=== PATIENT | female | born 1980 | race Two or more races ===

== ENCOUNTER 2020-10-27 15:32 | Observation (INO) | payer SELFPAY ==
[2015-07-08 14:20] VITALS: BP 125/79
[~2020-10-27 15:32] MED LIST: NAPR-683 PO; PNV1TABL25 PO; SULF1TAB24 PO
[2020-10-27 17:26] LABS: BILIRUBIN,URINE NEGATIVE (NEG); CLARITY,URINE CLEAR; COLOR,URINE YELLOW; NITRITE,URINE POSITIVE (NEG); PROTEIN,URINE NEGATIVE (NEG-TRACE)
[2020-10-27 17:34] LABS: AMORPHOUS SEDIMENT,UR PRESENT /HPF; BACTERIA,URINE MANY /HPF (0-FEW)
[2020-10-27 17:35] LABS: RBC,URINE 20-40 /HPF (0-2)
== END 2020-10-27 19:44 | disposition home or self-care (01) ==
LOC: 3 SO LND 15:32
PROVIDERS: ADMIT Obstetrics & Gynecology; ATTEND Obstetrics & Gynecology
DX: O26.893 Other specified pregnancy related conditions, third trimester (principal); R10.9 Unspecified abdominal pain; R05 Cough; Z3A.30 30 weeks gestation of pregnancy; Y04.0XXA Assault by unarmed brawl or fight, initial encounter; Y93.89 Activity, other specified; Y92.59 Other trade areas as the place of occurrence of the external cause; Y99.0 Civilian activity done for income or pay
CPT/HCPCS: 59025; 81001; 87086; G0378; G0379; 87077; 87186

== ENCOUNTER 2020-12-30 06:07 | Inpatient (IN) | payer SELFPAY ==
[~2020-12-30] VITALS: Ht 162.6 cm; Wt 91.7 kg
[2020-12-30] MEDS ORDERED: LIDOCAINE 1% PF 30 ML VIAL. INJ PRN (06:45)
[2020-12-30] MEDS ORDERED: TERBUTALINE 1 MG/ML VIAL. SQ PRN (06:45)
[2020-12-30] MEDS ORDERED: OXYTOCIN 30 UNIT/500 ML PREMIX 500 ML IV PRN ×3 (06:45→16:30)
[2020-12-30] MEDS ORDERED: IBUPROFEN 400 MG TABLET. PO PRN (06:45)
[2020-12-30] MEDS ORDERED: 0.9 % SODIUM CHLORIDE 10 ML DISP.SYRIN. IV PRN ×2 (06:45→16:30)
[2020-12-30 07:25] VITALS: BP 142/84
[2020-12-30] MEDS: IV RINGERS,LACTATED 1000ML 1,000 ML IV SCH ×2 (07:48→13:58)
[2020-12-30 08:12] LABS: BILIRUBIN,URINE NEGATIVE (NEG); CLARITY,URINE CLEAR; COLOR,URINE YELLOW; NITRITE,URINE NEGATIVE (NEG); PH,URINE 7.5 (<5.0-8.0); PROTEIN,URINE NEGATIVE (NEG-TRACE); UROBILINOGEN,URINE 0.2 mg/dL (0.2 mg/dL)
[2020-12-30 08:27] LABS: BACTERIA,URINE 0 /HPF (0-FEW); RBC,URINE 0 /HPF (0-2); WBC,URINE OCC /HPF (0-4)
[2020-12-30] MEDS ORDERED: BUTORPHANOL 2 MG/ML VIAL. IV PRN (08:30)
[2020-12-30 09:23] LABS: BASO % 0 % (0-3); EOS # 0.1 x10^3/uL (0.0-0.7); EOS % 1 % (0-3); HEMATOCRIT 31.6 % (36.0-47.0); LYMPH # 1.5 x10^3/uL (1.0-4.8); LYMPH % 17 % (24-48); MEAN CORPUSCULAR HEMOGLOBIN 30 pg (25-35); MEAN CORPUSCULAR HGB CONC 35 g/dL (31-37); MEAN CORPUSCULAR VOLUME 85 fL (79-100); MONO # 0.6 x10^3/uL (0.0-1.1); MONO % 7 % (0-9); NEUT # 6.5 x10^3/uL (1.8-7.7); NEUT % 75 % (31-73); PLATELET COUNT 268 x10^3/uL (140-400); RED BLOOD COUNT 3.72 x10^6/uL (3.50-5.40); RED CELL DISTRIBUTION WIDTH 14.4 % (11.5-14.5); WHITE BLOOD COUNT 8.7 x10^3/uL (4.0-11.0)
--- NOTE | 2020-12-30 09:34 | PDOC1 ---
ELEVATOR TECHNICIAN H&P Date of Admission: Date of Admission: Dec 30, 2020 at 06:07 History of Present Illness: EDC: 01/05/21 LMP: 03/31/20 40y @ 39.1 by L=10 presents for indxn of labor. The pt was originally on the schedule for 01/02/21 but was found elevated BPs in the office yesterday. She denied RAIN, changes in vision, or abd pain. On presentation to L&D she continued to have mild range BPs. PIH lbs were sent. She was found to be 2 cm on arrival. She was started on pit. PMH: tuberculosis/positive ppd, Acquired hypothyroidism, Essential hypertension, H/o preeclampsia PSH: Kidney Stones 12/2018 Meds: PNV, Synthroid All: NKDA OBHx: TSVD x 5, SAB x 2 SH: no tob, no EtOH FH: noncontributory Medications: Meds: Current Medications Medications (Trade) Dose Ordered Sig/Jaydon Route PRN Reason Start Time Stop Time Status Last Admin Dose Admin Ringer's Solution 1,000 ml @ 125 mls/hr Q8H IV 12/30/20 06:45 12/30/20 07:48 Oxytocin 500 ml @ 0 mls/hr CONT PRN IV SEE I/O RECORD 12/30/20 06:45 12/30/20 07:49 Allergies: Coded Allergies: No Known Drug Allergies (Unverified , 04/25/14) Physical Exam: Vital Signs: Vital Signs Date Time Temp Pulse Resp B/P (MAP) Pulse Ox O2 Delivery O2 Flow Rate FiO2 12/30/20 07:25 97.5 106 18 142/84 (103) 97 Room Air 97.5 PE: GENERAL: No apparent distress. Alert and oriented. HEENT: Head normocephalic, atraumatic. NECK: Supple LUNGS: Clear to auscultation. HEART: RRR, S1, S2 present, pulses intact ABDOMEN: Soft, positive bowel sounds. EXTREMITIES: No cyanosis or edema. NEUROLOGIC: Normal speech, normal tone PSYCHIATRIC: Normal affect, normal mood. SKIN: No ulceration. FHT: 140s +acels/no decels/mLTV [place]: 3 min SVE: 2/50/-2 Labs: Laboratory Tests Test 12/30/20 06:30 12/30/20 09:00 Urine Collection Type Unknown Urine Color Yellow Urine Clarity Clear Urine pH 7.5 (<5.0-8.0) Urine Specific [place] 1.010 (1.000-1.030) Urine Protein Negative mg/dL (NEG-TRACE) Urine Glucose (UA) Negative mg/dL (NEG) Urine Ketones (Stick) Negative mg/dL (NEG) Urine Blood Negative (NEG) Urine Nitrite Negative (NEG) Urine Bilirubin Negative (NEG) Urine Urobilinogen Dipstick 0.2 mg/dL (0.2 mg/dL) Urine Leukocyte Esterase Trace (NEG) Urine RBC 0 /HPF (0-2) Urine WBC Occ /HPF (0-4) Urine Squamous Epithelial Cells Few /LPF Urine Bacteria 0 /HPF (0-FEW) White Blood Count 8.7 x10^3/uL (4.0-11.0) Red Blood Count 3.72 x10^6/uL (3.50-5.40) Hemoglobin 11.0 g/dL (12.0-15.5) L Hematocrit 31.6 % (36.0-47.0) L Mean Corpuscular Volume 85 fL (79-100) Mean Corpuscular Hemoglobin 30 pg (25-35) Mean Corpuscular Hemoglobin Concent 35 g/dL (31-37) Red Cell Distribution Width 14.4 % (11.5-14.5) Platelet Count 268 x10^3/uL (140-400) Neutrophils (%) (Auto) 75 % (31-73) H Lymphocytes (%) (Auto) 17 % (24-48) L Monocytes (%) (Auto) 7 % (0-9) Eosinophils (%) (Auto) 1 % (0-3) Basophils (%) (Auto) 0 % (0-3) Neutrophils # (Auto) 6.5 x10^3/uL (1.8-7.7) Lymphocytes # (Auto) 1.5 x10^3/uL (1.0-4.8) Monocytes # (Auto) 0.6 x10^3/uL (0.0-1.1) Eosinophils # (Auto) 0.1 x10^3/uL (0.0-0.7) Basophils # (Auto) 0.0 x10^3/uL (0.0-0.2) Laboratory Tests 12/30/20 09:00 Laboratory Tests 12/30/20 09:00 Assessment & Plan: A/P 40y @ 39.1 by L=10 1.) Indxn on Pit 2.) GHTN vs preeclampsia PIH labs sent. Denies s/s of preeclampsia 3.) H/o preeclampsia 4.) AMA 5.) Hypothyroidism 6.) Flu vaccine given 06/30/20 7.) TDAP given 10/19/20 8.) Fetus cat I FHT 9.) GBS neg BARI PEREZ MD Dec 30, 2020 09:34
[2020-12-30 09:47] LABS: ALBUMIN 2.2 g/dL (3.4-5.0); ALBUMIN/GLOBULIN RATIO 0.7 (1.0-1.7); CALCIUM 7.6 mg/dL (8.5-10.1); CREATININE 0.6 mg/dL (0.6-1.0); GFR 111.9; POTASSIUM 4.3 mmol/L (3.5-5.1); TOTAL BILIRUBIN 0.1 mg/dL (0.2-1.0); TOTAL PROTEIN 5.3 g/dL (6.4-8.2); URIC ACID 2.9 mg/dL (2.6-6.0)
[2020-12-30] MEDS ORDERED: miSOPROStol 200 MCG TABLET. ONE ×2 (16:22→17:00)
[2020-12-30] MEDS ORDERED: SIMETHICONE 80 MG TAB.CHEW PO PRN (16:30)
[2020-12-30] MEDS ORDERED: HYDROCORTISONE 1% TOPICAL OINTMENT 30GM TUBE. TP PRN (16:30)
[2020-12-30] MEDS ORDERED: MMR per PROTOCOL. MC PRN (16:30)
[2020-12-30] MEDS ORDERED: diphenhydrAMINE HCL 25 MG CAPSULE PO PRN (16:30)
[2020-12-30] MEDS ORDERED: PHENYLEPH/MINERAL OIL/PETROLAT RECTAL OINTMENT TUBE. RC PRN (16:30)
[2020-12-30] MEDS ORDERED: MAG HYDROX/ALUMINUM HYD/SIMETH 30 ML ORAL.SUSP PO PRN (16:30)
[2020-12-30] MEDS ORDERED: oxyCODONE/APAP 5/325 1 TAB TABLET PO PRN (16:30)
[2020-12-30] MEDS ORDERED: BENZOCAINE 20% TOPICAL AEROSOL SPRAY 57GM CAN. TP PRN (16:30)
[2020-12-30] MEDS ORDERED: ZOLPIDEM 5 MG TABLET. PO PRN (16:30)
[2020-12-30] MEDS ORDERED: MAGNESIUM HYDROXIDE 2,400 MG/30 ML ORAL.SUSP. PO PRN (16:30)
[2020-12-30] MEDS ORDERED: TDaP (Adacel) per PROTOCOL. MC PRN (16:30)
--- NOTE | 2020-12-30 16:35 | PDOC4 ---
VAGINAL DELIVERY DATE DATE: 12/30/20 TIME: 16:35 TIME Patient delivered a viable male infant over intact perineum at 1607. Wt 7 lb 10 oz. Apgars 8/9. Placenta delivered spontaneously, intact with 3VC. No lacerations noted. 20 U of Pit given with IVF. Still with brisk bleeding. Cytotec 800 mg given. Good hemostasis noted. EBL 300 cc. WEIGHT Weight [ ] BARI PEREZ MD Dec 30, 2020 16:35
[2020-12-30 19:51] VITALS: BP 150/85
[2020-12-31 01:34] VITALS: BP 131/76
[2020-12-31 05:54] VITALS: BP 123/83
[2020-12-31] MEDS: DOCUSATE SODIUM 100 MG CAPSULE. PO PRN ×2 (05:59→21:02)
[2020-12-31] MEDS: IBUPROFEN 400 MG TABLET. PO PRN ×3 (06:00→21:03)
[2020-12-31 07:42] LABS: HEMATOCRIT 27.2 % (36.0-47.0); HEMOGLOBIN 9.6 g/dL (12.0-15.5); RED BLOOD COUNT 3.25 x10^6/uL (3.50-5.40); RED CELL DISTRIBUTION WIDTH 14.7 % (11.5-14.5); WHITE BLOOD COUNT 11.8 x10^3/uL (4.0-11.0)
[2020-12-31 08:30] VITALS: BP 127/72
[2020-12-31] MEDS: PRENATAL MULTIVITAMIN TABLET. PO SCH (09:01)
[2020-12-31] MEDS: FERROUS SULFATE 325 MG TABLET. PO SCH ×2 (09:01→21:03)
--- NOTE | 2020-12-31 11:38 | PDOC ---
SENIOR CLINICAL RESEARCH ASSOCIATE PROGRESS NOTE Date of Service: DATE: 12/31/20 TIME: 11:37 Subjective: Pt with good pain control. Neo PO. Voiding. Minimal lochia. Objective: Vital Signs: Vital Signs Date Time Temp Pulse Resp B/P (MAP) Pulse Ox O2 Delivery O2 Flow Rate FiO2 12/30/20 07:25 97.5 106 18 142/84 (103) 97 Room Air 97.5 Vital Signs Date Time Temp Pulse Resp B/P (MAP) Pulse Ox O2 Delivery O2 Flow Rate FiO2 12/31/20 08:45 Room Air 12/31/20 08:30 98.0 83 18 127/72 (90) 98 98.0 Labs: Laboratory Tests Test 12/31/20 07:30 White Blood Count 11.8 x10^3/uL (4.0-11.0) H Red Blood Count 3.25 x10^6/uL (3.50-5.40) L Hemoglobin 9.6 g/dL (12.0-15.5) L Hematocrit 27.2 % (36.0-47.0) L Mean Corpuscular Volume 84 fL (79-100) Mean Corpuscular Hemoglobin 30 pg (25-35) Mean Corpuscular Hemoglobin Concent 35 g/dL (31-37) Red Cell Distribution Width 14.7 % (11.5-14.5) H Platelet Count 242 x10^3/uL (140-400) Laboratory Tests 12/31/20 07:30 Laboratory Tests 12/31/20 07:30 Physical Exam: GENERAL: No apparent distress. Alert and oriented. HEENT: Head normocephalic, atraumatic. NECK: Supple LUNGS: Clear to auscultation. HEART: RRR, S1, S2 present, pulses intact ABDOMEN: Soft, positive bowel sounds. EXTREMITIES: No cyanosis or edema. NEUROLOGIC: Normal speech, normal tone PSYCHIATRIC: Normal affect, normal mood. SKIN: No ulceration. FFNT below umb No C/C/E Assessment & Plan: A/P 40y PPD #1 s/p 1.) PP doing well 2.) GHTN vs preeclampsia BPs improving since delivery. Mild last night, nml today. PIH labs wnl. Denies s/s of preeclampsia 3.) H/o preeclampsia 4.) Hypothyroidism 5.) Flu vaccine given 06/30/20 6.) TDAP given 10/19/20 7.) Anemia Hgb 11.0 -> 9.6, on Fe 8.) Ucx - 60,000 CFU/ML GRAM ESCHERICHIA COLI, so will not treat 9.) Cont PP care BARI PEREZ MD Dec 31, 2020 11:37
[2020-12-31 12:40] VITALS: BP 130/74
[2020-12-31 16:30] VITALS: BP 127/71
[2020-12-31 20:55] VITALS: BP 120/71
[2020-12-31] MEDS ORDERED: IV RINGERS,LACTATED 1000ML 1,000 ML IV PRN (22:30)
[2021-01-01] MEDS: ACETAMINOPHEN 325 MG TABLET. PO PRN ×2 (04:30→14:34)
[2021-01-01] MEDS: IBUPROFEN 400 MG TABLET. PO PRN ×3 (04:30→22:03)
[2021-01-01 04:36] VITALS: BP 135/82
[2021-01-01] MEDS: PRENATAL MULTIVITAMIN TABLET. PO SCH (08:36)
[2021-01-01] MEDS: DOCUSATE SODIUM 100 MG CAPSULE. PO PRN ×2 (08:36→18:39)
[2021-01-01] MEDS: FERROUS SULFATE 325 MG TABLET. PO SCH ×2 (08:36→18:39)
[2021-01-01 08:37] VITALS: BP 113/74
--- NOTE | 2021-01-01 10:54 | PDOC ---
COLLAR PADDER BLINDSTITCH PROGRESS NOTE Date of Service: DATE: 01/01/21 TIME: 10:54 Subjective: Pt with good pain control. Neo PO. Voiding. Minimal lochia. The pt had a fever last night and this am. She was noted to have tachycardia during the events. The pt states that she also noticed a RAIN around the time. The pt denies any abd pain or breast tenderness. The fever was unrelated to any medications given around the time. Objective: Vital Signs: Vital Signs Date Time Temp Pulse Resp B/P (MAP) Pulse Ox O2 Delivery O2 Flow Rate FiO2 12/31/20 08:30 98.0 83 18 127/72 (90) 98 Room Air 98.0 Vital Signs Date Time Temp Pulse Resp B/P (MAP) Pulse Ox O2 Delivery O2 Flow Rate FiO2 01/01/21 08:37 97.6 84 16 113/74 (87) 99 Room Air 97.6 Physical Exam: GENERAL: No apparent distress. Alert and oriented. HEENT: Head normocephalic, atraumatic. NECK: Supple LUNGS: Clear to auscultation. HEART: RRR, S1, S2 present, pulses intact ABDOMEN: Soft, positive bowel sounds. EXTREMITIES: No cyanosis or edema. NEUROLOGIC: Normal speech, normal tone PSYCHIATRIC: Normal affect, normal mood. SKIN: No ulceration. FFNT below umb No C/C/E Assessment & Plan: A/P 40y PPD #2 s/p 1.) PP doing well 2.) GHTN vs preeclampsia BPs improving since delivery. BPs nml since a few mild after delivery. PIH labs wnl. Denies s/s of preeclampsia 3.) H/o preeclampsia 4.) Fever no local signs. Since pt noted with E. Coli (60,000 CFU/ML) will tx despite the isolate being less than10^2 cfu/mL 5.) Hypothyroidism 6.) Flu vaccine given 06/30/20 7.) TDAP given 10/19/20 8.) Anemia Hgb 11.0 -> 9.6, on 9.) Cont PP care BARI PEREZ MD Jan 01, 2021 10:54
[2021-01-01] MEDS ORDERED: FERR325T14 PO (11:02)
[2021-01-01] MEDS ORDERED: NITR100C62 PO (11:02)
[2021-01-01] MEDS ORDERED: DOCU-109 PO (11:02)
[2021-01-01] MEDS ORDERED: IBUP-1060 PO (11:02)
--- NOTE | 2021-01-01 13:00 | NUR ---
Discharge Note: LIDIA SCOTT3 SO LND Discharge instructions and discharge home medications reviewed with Patient and a copy given. All questions have been answered and understanding verbalized. The following instructions and handouts were given: [facility] Patient Discharge Instruction Sheet and Medication Schedule Discharge Instructions Post Patients Well Principal Statistical Scientist - [place] Depression and Baby Blues Care After Vaginal Delivery Discharge instructions reviewed via stile ripsaw operator phone ID#[id number]. Pt. to get dressed in personal clothing. Pt. awaiting to come pick her up.
[2021-01-01 14:00] VITALS: BP 134/82
--- NOTE | 2021-01-01 14:10 | NUR ---
Pt. ready to d/c. RN to bedside to get d/c VS. Pt. temperature increase and pt. had elevated HR. MD called and updated. Telephone orders to cancel d/c.
--- NOTE | 2021-01-01 14:21 | DS ---
DATE OF DISCHARGE: 01/02/2021 ADMITTING DIAGNOSES: 1. Intrauterine at 39 weeks and 1 day by last menstrual period equal to a 10-week ultrasound. 2. Induction of labor. 3. Gestational hypertension versus preeclampsia. 4. History of preeclampsia. 5. Advanced maternal age. 6. Hypothyroidism. 7. Status post flu vaccine. 8. Status post Tdap. 9. Group B Streptococcus negative. DISCHARGE DIAGNOSES: 1. Intrauterine at 39 weeks and 1 day by last menstrual period equal to a 10-week ultrasound. 2. Induction of labor. 3. Gestational hypertension versus preeclampsia. 4. History of preeclampsia. 5. Advanced maternal age. 6. Hypothyroidism. 7. Status post flu vaccine. 8. Status post Tdap. 9. Group B Streptococcus negative. 10. Fever, thought to be related to urinary tract infection. PROCEDURE: Spontaneous vaginal delivery. BRIEF HOSPITAL COURSE: The patient is a 40-year-old 8, para 5-0-2-5 who presented to Labor and Delivery at 39 weeks and 1 day by LMP equal to 10-week ultrasound for induction of labor. The patient was originally on the schedule for induction on 01/02/2021, but was found to have elevated blood pressure at her office visit the prior day. At that time, the patient had no headache, changes in vision or abdominal pain. Due to worsening blood pressures, the patient's induction was moved to the following day. The patient continued to have mild range blood pressures, but remained without signs or symptoms of preeclampsia. [facility] labs were sent and returned normal. On arrival, the patient was found to be 2 cm dilated. The patient was started on Pitocin for her induction. The patient ultimately delivered later that afternoon. See delivery note for full detail. Around the time of delivery, the patient had few severe range blood pressures, but did not require any treatment. She had a few mild range blood pressures right after delivery, but the following blood pressures were all normal. The patient also spiked a fever over night of day #1. She did not have any local signs, but the patient did have E. coli in a urine culture. The quantity of bacteria was below the recommended amount for treatment of asymptomatic bacteria. Originally she was to be discharged on day #2, but she continued to have occasional fevers. Because she had a fever and bacteria in her urine, she was given a dose of Rocephin and started on Macrobid for urinary tract infection. The patient's hemoglobin on presentation was found to be 11.0 and after delivery, was found to be 9.6. DISCHARGE INSTRUCTIONS: The patient was told not to lift anything greater than 20 pounds, have pelvic rest for 6 weeks. CALL IF: The patient was to call if she had fevers, chills, nausea, vomiting, abdominal pain, or any additional questions or concerns. DISCHARGE APPOINTMENT: The patient was to follow up on 01/05 at 01:20 p.m. for a blood pressure check. DISCHARGE MEDICATIONS: The patient was given a prescription for Motrin 800 mg, 30 pills; Colace 100 mg, 30 pills; ferrous sulfate 325 mg, 30 pills and Macrobid 100 mg, [address]: Tiff TID: [id number] MTDD
[2021-01-01] MEDS ORDERED: cefTRIAXone IM 1 GM VIAL IM ONE (15:30)
[2021-01-01 16:12] VITALS: BP 121/64
[2021-01-01 22:04] VITALS: BP 131/78
--- NOTE | 2021-01-01 22:09 | NUR ---
MD called and updated on most recent VS. Pt. in bed and shivering. MD verbalized understanding.
[2021-01-02 05:00] VITALS: BP 123/61
[2021-01-02 07:50] VITALS: BP 128/75
[2021-01-02] MEDS: IBUPROFEN 400 MG TABLET. PO PRN (08:19)
[2021-01-02] MEDS: PRENATAL MULTIVITAMIN TABLET. PO SCH (08:22)
[2021-01-02] MEDS: FERROUS SULFATE 325 MG TABLET. PO SCH (08:58)
[2021-01-02] MEDS ORDERED: NITROFURANTOIN MONOHYD/M-CRYST 100 MG CAPSULE. PO SCH (09:00)
[2021-01-02 09:07] LABS: BASO % 0 % (0-3); EOS # 0.1 x10^3/uL (0.0-0.7); EOS % 1 % (0-3); HEMATOCRIT 25.5 % (36.0-47.0); HEMOGLOBIN 8.6 g/dL (12.0-15.5); LYMPH % 11 % (24-48); MEAN CORPUSCULAR HEMOGLOBIN 29 pg (25-35); MEAN CORPUSCULAR HGB CONC 34 g/dL (31-37); MEAN CORPUSCULAR VOLUME 85 fL (79-100); MONO # 0.6 x10^3/uL (0.0-1.1); MONO % 7 % (0-9); NEUT # 7.8 x10^3/uL (1.8-7.7); NEUT % 82 % (31-73); PLATELET COUNT 244 x10^3/uL (140-400); RED CELL DISTRIBUTION WIDTH 14.8 % (11.5-14.5); WHITE BLOOD COUNT 9.5 x10^3/uL (4.0-11.0)
--- NOTE | 2021-01-02 09:39 | PDOC ---
ICER MACHINE PROGRESS NOTE Date of Service: DATE: 01/02/21 TIME: 09:35 Subjective: Pt feels worse today. Pt still with fevers Objective: Vital Signs: Vital Signs Date Time Temp Pulse Resp B/P (MAP) Pulse Ox O2 Delivery O2 Flow Rate FiO2 01/01/21 08:37 97.6 84 16 113/74 (87) 99 Room Air 97.6 Vital Signs Date Time Temp Pulse Resp B/P (MAP) Pulse Ox O2 Delivery O2 Flow Rate FiO2 01/02/21 05:00 99.3 114 18 123/61 (81) 97 Room Air 99.3 Labs: Laboratory Tests Test 01/02/21 08:45 White Blood Count 9.5 x10^3/uL (4.0-11.0) Red Blood Count 3.00 x10^6/uL (3.50-5.40) L Hemoglobin 8.6 g/dL (12.0-15.5) L Hematocrit 25.5 % (36.0-47.0) L Mean Corpuscular Volume 85 fL (79-100) Mean Corpuscular Hemoglobin 29 pg (25-35) Mean Corpuscular Hemoglobin Concent 34 g/dL (31-37) Red Cell Distribution Width 14.8 % (11.5-14.5) H Platelet Count 244 x10^3/uL (140-400) Neutrophils (%) (Auto) 82 % (31-73) H Lymphocytes (%) (Auto) 11 % (24-48) L Monocytes (%) (Auto) 7 % (0-9) Eosinophils (%) (Auto) 1 % (0-3) Basophils (%) (Auto) 0 % (0-3) Neutrophils # (Auto) 7.8 x10^3/uL (1.8-7.7) H Lymphocytes # (Auto) 1.0 x10^3/uL (1.0-4.8) Monocytes # (Auto) 0.6 x10^3/uL (0.0-1.1) Eosinophils # (Auto) 0.1 x10^3/uL (0.0-0.7) Basophils # (Auto) 0.0 x10^3/uL (0.0-0.2) Laboratory Tests 01/02/21 08:45 Laboratory Tests 01/02/21 08:45 Physical Exam: GENERAL: No apparent distress. Alert and oriented. HEENT: Head normocephalic, atraumatic. NECK: Supple LUNGS: Clear to auscultation. HEART: RRR, S1, S2 present, pulses intact ABDOMEN: Soft, positive bowel sounds. EXTREMITIES: No cyanosis or edema. NEUROLOGIC: Normal speech, normal tone PSYCHIATRIC: Normal affect, normal mood. SKIN: No ulceration. CTAB tachy FFNT below umb No C/C/E Assessment & Plan: A/P 40y PPD #3 s/p 1.) PP doing well 2.) Fever no local signs. Tmax 100.3 (01/02/21 at 0900), txing as E. Coli UTI (60,000 CFU/ML), given first dose of 01/01/21 at 1530, now on Macrobid. WBC repeated today (pending) 3.) GHTN vs preeclampsia BPs improving since delivery. BPs nml since a few mild after delivery. PIH labs wnl. Denies s/s of preeclampsia 4.) H/o preeclampsia 5.) Hypothyroidism 6.) Flu vaccine given 06/30/20 7.) TDAP given 10/19/20 8.) Anemia Hgb 11.0 -> 9.6, on 9.) Cont PP BARI Caban MD Jan 02, 2021 09:39
[2021-01-02 14:57] VITALS: BP 122/76
[2021-01-02 17:33] VITALS: BP 134/86
[2021-01-02 19:01] VITALS: BP 133/79
--- NOTE | 2021-01-02 19:04 | NUR ---
discharge done. Pt vital signs obtained. discharged to home accompanied by and . Reenforced need to take all medications.
[2021-01-02] MEDS ORDERED: LACTOBACILLUS RHAMNOSUS GG 1 CAPSULE. PO SCH (21:00)
== END 2021-01-02 19:14 | disposition home or self-care (01) | DRG 807 ==
LOC: 3 SO LND 06:07
PROVIDERS: ADMIT Obstetrics & Gynecology; ATTEND Obstetrics & Gynecology
PROC: 10E0XZZ Delivery of Products of Conception, External Approach (ICD-10-PCS; principal; 2020-12-30)
PROC: 3E0DXGC Introduction of Other Therapeutic Substance into Mouth and Pharynx, External Approach (ICD-10-PCS; 2020-12-30)
DX: O13.4 Gestational [pregnancy-induced] hypertension without significant proteinuria, complicating childbirth (principal); Z37.0 Single live birth; O14.94 Unspecified pre-eclampsia, complicating childbirth; O99.284 Endocrine, nutritional and metabolic diseases complicating childbirth; Z3A.39 39 weeks gestation of pregnancy; Z87.442 Personal history of urinary calculi; E03.9 Hypothyroidism, unspecified; O86.20 Urinary tract infection following delivery, unspecified; B96.20 Unspecified Escherichia coli [E. coli] as the cause of diseases classified elsewhere; O90.81 Anemia of the puerperium; D64.9 Anemia, unspecified; Z20.822 Contact with and (suspected) exposure to COVID-19
CPT/HCPCS: 36415; 80053; 81001; 83615; 84550; 85025; 85027; 86592; 86850; 86900; 86901; 87077; 87086; 87186; 87426; J0595; J0696; J2590; J7120; U0003; U0005; G0378